=== PATIENT | female | born 2000 | race Caucasian/White ===

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

== ENCOUNTER → 2018-06-03 | Outpatient (CLI) | payer OTHER ==
[~2018-06-03] MED LIST: HYDR-3164 PO; ONDA4TAB10 PO
--- NOTE | 2018-06-04 08:29 | RAD ---
Thyroid ultrasound Sonographic examination of the thyroid was performed and multiple static images were obtained There are numerous small cystic nodules scattered throughout the thyroid bilaterally. The 3 largest are in the lower pole of the left lobe of thyroid with the largest measuring 1.6 cm in diameter. The right lobe of thyroid measures 6.7 x 1.5 x 1.5 cm. Left lower thyroid measures 6.6 x 1.8 x 1.3 cm. IMPRESSION: 1. Multiple cystic nodules scattered throughout the thyroid. These are seen on June 09, 2017 CT. 2. No dominant mass. 3. Recommend correlation with TSH. Electronically signed by: Pio Devi III, MD (06/04/2018 8:26 AM) [facility]
== END | disposition home or self-care (01) ==
LOC: US 14:31
PROVIDERS: ATTEND Family Medicine
DX: E04.2 Nontoxic multinodular goiter (principal)
CPT/HCPCS: 76536